=== PATIENT | male | born 1945 | race Caucasian/White ===

== ENCOUNTER 2021-08-28 09:24 | Emergency (ER) | payer OTHER ==
[~2021-08-28] VITALS: Ht 185.4 cm; Wt 106.6 kg
[~2021-08-28 09:24] MED LIST: CARDIZEM CD180 MG PO; CARVEDILOL25 MG PO; HYDROCHLOROTH12.5 MG; ZESTRIL20 MG PO
[2021-08-28] MEDS ORDERED: PRINIVIL20 MG PO (09:43)
[2021-08-28] MEDS ORDERED: ATORVASTATIN CA80 MG PO (09:43)
[2021-08-28] MEDS ORDERED: NITROGLYCERIN0.4 MG SUBLING (09:43)
[2021-08-28 19:57] VITALS: BP 139/81
--- NOTE | 2021-08-29 12:03 | EKG ---
[place] [address] [address] [facility] [place] [address] ELECTROCARDIOGRAM REPORT Name: BOI DAUGHERTY Room #: [facility] [id number] Admission: 08/28/21 Attend Phys: Discharge: 08/28/21 Date of : 47 Report #: [id number] [facility] ED Test Date: 2021-08-28 Test Time: 18:03:14 Pat Name: OBI DAUGHERTY Department: Room: Gender: [employer]: SOPHIE : 1945 Requested By: Marcus Sol Order Number: [id number] MD: Claudy Licea Measurements Intervals [place] Rate: 71 P: 41 MA: 152 QRS: -25 QRSD: 113 T: 71 QT: 446 QTc: 485 Interpretive Statements Sinus rhythm Ventricular premature complex Left ventricular hypertrophy Borderline prolonged QT interval No previous ECG available for comparison Electronically Signed On 08-29-2021 12:03:41 CORE MOUNTER by Claudy Licea [email or web address] <ELECTRONICALLY SIGNED> By: Claudy Licea MD, [facility] 08/29/21 1203 180 1803 Claudy Licea MD, FACC /EPI
== END 2021-08-28 19:57 | disposition short-term general hospital (02) ==
LOC: ER 09:24
DX: L76.32 Postprocedural hematoma of skin and subcutaneous tissue following other procedure (principal); I10 Essential (primary) hypertension; Z79.891 Long term (current) use of opiate analgesic; Z79.899 Other long term (current) drug therapy